=== PATIENT | female | born 2000 | race Caucasian/White ===

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

== ENCOUNTER 2022-03-28 23:13 | Emergency (ER) | payer MEDICAID ==
[~2022-03-28] VITALS: Ht 167.6 cm; Wt 64.9 kg
[~2022-03-28 23:13] MED LIST: ONDA4TAB5 MT
[2022-03-29 00:08] VITALS: BP 115/78
[2022-03-29] MEDS ORDERED: BACITRACIN ZINC OINT UDPKT TOP ONE (02:30)
[2022-03-29] MEDS ORDERED: IBUPROFEN 600MG TABLET PO ONE (02:30)
[2022-03-29] MEDS ORDERED: LIDOCAINE HCL/PF 1% 10 MG/ML 5ML VIAL INFIL ONE (02:30)
[2022-03-29] MEDS ORDERED: IBUP-2029 PO (03:13)
[2022-03-29] MEDS ORDERED: CEPH500C2 MT (03:13)
[2022-03-29] MEDS ORDERED: SULF1TAB48 MT (03:13)
== END 2022-03-29 03:30 | disposition home or self-care (01) ==
LOC: ER 23:13
DX: L03.011 Cellulitis of right finger (principal)
CPT/HCPCS: 10060; 81025; 99283; J3490; Z7610